=== PATIENT | male | born 1950 | race Caucasian/White ===

== ENCOUNTER 2016-09-22 07:47 | Day surgery (SDC) | payer MEDICARE, OTHER ==
[2016-09-19 13:36] LABS: BASOPHILS 0.1 %; BASOPHILS ABSOLUTE 0.01 10/3/uL (0.0-0.16); EOSINOPHILS 1.8 %; EOSINOPHILS ABSOLUTE 0.13 10/3/uL (0.0-0.53); HEMATOCRIT 41.1 % (40.0-51.0); HEMOGLOBIN 13.8 g/dL (13.6-17.8); IMMATURE GRANULOCYTES 0.1 %; IMMATURE GRANULOCYTES ABSOLUTE 0.01 10/3/uL (0.0-0.11); LYMPHOCYTES 20.2 %; LYMPHOCYTES ABSOLUTE 1.46 10/3/uL (0.67-4.30); MANUAL DIFF NO %; MEAN CORPUS HGB CONC 33.6 g/dL (32.0-36.0); MEAN CORPUSCULAR HEMOGLOB 27.7 pg (26.0-34.0); MEAN CORPUSCULAR VOLUME 82.5 fL (80-100); MEAN PLATELET VOLUME 9.3 fL (9.2-13.0); MONOCYTES 10.9 %; MONOCYTES ABSOLUTE 0.79 10/3/uL (0.21-1.20); NEUTROPHILS 66.9 %; NEUTROPHILS ABSOLUTE 4.83 10/3/uL (2.02-8.40); PLATELET COUNT 191 10/3/uL (150-400); RED CELL COUNT 4.98 10/6/uL (4.7-6.1); WHITE BLOOD CELLS 7.2 10/3/uL (4.5-10.5)
[2016-09-19 13:53] LABS: ALBUMIN 3.1 G/DL (3.5-5.0); ALKALINE PHOSPHATASE 114 U/L (45-117); CALCIUM, SERUM 9.8 MG/DL (8.5-10.4); CHLORIDE, SERUM 105 MMOL/L (96-112); CO2 (CARBON DIOXIDE) 31 MMOL/L (24-34); CREATININE 1.82 MG/DL (0.70-1.30); DIRECT BILIRUBIN 0.2 MG/DL (0.0-0.4); GFR AFRICAN AMERICAN 43 ML/MIN (>=60); GFR NON AFRICAN AMERICAN 37 ML/MIN (>=60); GLUCOSE, SERUM 90 MG/DL (60-99); INDIRECT BILIRUBIN(NOT ORDER) 0.4 MG/DL (0.1-0.9); POTASSIUM, SERUM 4.1 MMOL/L (3.5-5.3); SGOT(AST) 14 U/L (5-40); SGPT(ALT) 21 U/L (5-65); SODIUM, SERUM 141 MMOL/L (135-148); TOTAL BILIRUBIN 0.6 MG/DL (0-1.2); TOTAL PROTEIN 6.9 G/DL (6.0-8.5)
[2016-09-19 13:58] LABS: BUN (BLOOD UREA NITROGEN) 23 MG/DL (6-23)
[2016-09-19 14:40] LABS: ASCORBIC ACID (UR NOT ORDER) NEG (NEG); BILIRUBIN, URINE NEGATIVE (NEG); KETONE, URINE NEGATIVE (NEG); LEUKOCYTE ESTERASE(NOT OR TRACE (NEG); WBC (NOT ORDERED) (RFLEX) 5 (0-5)
--- NOTE | ~2016-09-22 | OP ---
Record Of Operation [facility] [address] [place]. [address] NAME: JONH ARCHER : 46 STATUS : [facility]#: [id number] AGE: 66 ADM/REG DATE : 09/22/16 MR#: [id number] REPORT SERV DATE: 09/22/16 DICTATED BY: Dangelo ZHU DATE: 09/22/16 REPORT STATUS : Draft TRANSCRIBED BY: MODL DATE: 09/22/16 DATE OF PROCEDURE: 09/22/2016 PREOPERATIVE DIAGNOSIS: Left distal ureteral stone, 6 mm. POSTOPERATIVE DIAGNOSIS: Left distal ureteral stone, 6 mm. PROCEDURE: Left ureteral ESWL. SURGEON: Dangelo Zhu M.D. ANESTHESIA: MAC. COMPLICATIONS: None. DRAINS: None. BRIEF HISTORY: Mr. Archer is a 66-year-old white male, well known to me with a history of recurrent stone disease. He presented last week with three days of left flank pain and a noncontrast CT showed a 6 mm left distal ureteral stone 2 to 3 cm at the proximal UVJ with moderate hydro. This was confirmed by KUB. We discussed management options which included endoscopy or ESWL. He has previously responded well to ESWL and wanted to try that. We discussed the risks of bleeding, infection, anesthesia, injury to adjacent organs, need for retreatment, endoscopy, etc. There were no unanswered questions. DESCRIPTION OF PROCEDURE: Under excellent MAC anesthesia, the patient was placed supine on the Dornier Delta II lithotripsy machine and an anterior approach was used. The stone was easily localized at F2 and a total of 3000 shocks at a power level up to 5.0 were delivered to the stone. The patient tolerated the procedure well and there appeared to be some fragmentation. I plan to discharge Mr. Archer as an outpatient with the following instructions: DISCHARGE INSTRUCTIONS: 1. Home today. 2. Strain all urine. 3. Dilaudid 2 mg one p.o. q.3 to 4 hours p.r.n. pain #15. 4. We will check a creatinine before his departure because a creatinine checked on 09/19/2016, was elevated at approximately at 1.82. We will notify him of this. We need to intervene sooner, otherwise we will have him follow up 1 to 2 weeks with a KUB and any collected fragments. EDGAR/EDL Dangelo Nichols Record Of Operation [facility] [address] [place]. [address] NAME: JONH ARCHER : 46 STATUS : [facility]#: [id number] AGE: 66 ADM/REG DATE : 09/22/16 MR#: [id number] REPORT SERV DATE: 09/22/16 DICTATED BY: Dangelo ZHU DATE: 09/22/16 REPORT STATUS : Draft TRANSCRIBED BY: RITA DATE: 09/22/16 Nehemias Zhu / [id number] CC: Nehemias Barillas M.D.
[~2016-09-22 07:47] MED LIST: ADVIL PO; DIL2TAB PO; FISH-EPA1000 MG PO; FLOMAX4 PO; GRAPE SEED EXTRACT; MAGNEBIND PO; MULTIPLE VIT PO; PR25 PO; PROBIOTIC; VITAMIN D31000 UNIT PO; ZOFRAN4 PO
[2016-09-22 12:11] LABS: CALCIUM, SERUM 9.3 MG/DL (8.5-10.4); CHLORIDE, SERUM 109 MMOL/L (96-112); CO2 (CARBON DIOXIDE) 29 MMOL/L (24-34); GFR AFRICAN AMERICAN 75 ML/MIN (>=60); GFR NON AFRICAN AMERICAN 64 ML/MIN (>=60); GLUCOSE, SERUM 88 MG/DL (60-99); POTASSIUM, SERUM 4.6 MMOL/L (3.5-5.3); SODIUM, SERUM 144 MMOL/L (135-148)
[2016-09-22 12:12] LABS: BUN (BLOOD UREA NITROGEN) 19 MG/DL (6-23); CREATININE 1.16 MG/DL (0.70-1.30)
== END 2016-09-22 12:26 | disposition home or self-care (01) ==
LOC: SDC 07:47
PROC: 0TF7XZZ Fragmentation in Left Ureter, External Approach (ICD-10-PCS; principal; 2016-09-22 10:00)
DX: N20.2 Calculus of kidney with calculus of ureter (principal); Z87.442 Personal history of urinary calculi; G47.33 Obstructive sleep apnea (adult) (pediatric); Z91.018 Allergy to other foods; E83.119 Hemochromatosis, unspecified; N28.89 Other specified disorders of kidney and ureter
CPT/HCPCS: 50590; 74000; 80048; 80076; 81001; 85025; 93005; J2250; J2405; J3010